=== PATIENT | female | born 1980 | race Caucasian/White ===

== ENCOUNTER 2017-01-27 09:47 | Emergency (ER) | payer BC, OTHER ==
[~2017-01-27] VITALS: Ht 170.2 cm; Wt 75.0 kg
[2017-01-27] MEDS ORDERED: SERT-155 (10:03)
[2017-01-27] MEDS ORDERED: SERT25TA88 (10:03)
[2017-01-27 10:58] LABS: BASO % 0.3 % (0.0-1.0); EOS # 0.2 K/mm3 (0.0-0.50); LARGE UNSTAINED CELL # 0.1 K/mm3 (0.0-0.4); LARGE UNSTAINED CELL % 1.5 % (0.0-4.0); LYMPH # 1.5 K/mm3 (1.5-4.5); LYMPH % 18.2 % (24.0-44.0); MEAN CORPUSCULAR HEMOGLOBIN 31.2 pg (27.0-33.0); MEAN CORPUSCULAR HGB CONC 34.7 g/dl (32.0-36.5); MEAN CORPUSCULAR VOLUME 90.1 fl (80.0-96.0); MONO # 0.6 K/mm3 (0.0-0.8); NEUTROPHILS # 5.2 K/mm3 (1.8-7.7); NEUTROPHILS % 68.9 % (36.0-66.0); PLATELET COUNT, AUTOMATED 263 k/mm3 (150-450); RED CELL DISTRIBUTION WIDTH 12.3 % (11.5-14.5); WHITE BLOOD COUNT 7.5 K/mm3 (4.0-10.0)
[2017-01-27 11:20] LABS: CONTROL LINE HCG INT CTR LINE PRESENT
[2017-01-27 11:23] LABS: INR 0.96
--- NOTE | 2017-01-27 12:25 | REP ---
Clinical: Abnormal uterine bleeding . Technique: Transabdominal pelvic ultrasound followed by transvaginal examination for better evaluation of the endometrium and adnexa with color Doppler evaluation of the ovaries. Findings: Bladder is unremarkable and measures approximately 8.0 x 6.2 x 3.4 cm . Heterogeneous anteverted possibly subseptate uterus measures 6.3 x 3.3 x 4.1 cm. The endometrial complex measures 3.8 mm thickness. Sub centimeter anterior intramural fibroid measures roughly 7 mm maximal diameter. Bilateral ovaries are normal in appearance and vascularity without evidence for torsion. Right ovary measures 1.6 x 1.3 x 2.0 cm ; R I = 0.63 . Left ovary measures 3.9 x 2.6 x 2.3 cm and includes multiple follicles; R I = 0.45 . No pelvic fluid or adnexal mass lesion . Impression: 1. Subcentimeter anterior intramural fibroid. Subseptate appearance to the uterus. 2. Normal bilateral ovaries. 3. No pelvic fluid or adnexal mass lesion. Signed by Ad Toledo MD 01/27/2017 12:17 P
[2017-01-27 12:54] VITALS: BP 129/73
== END 2017-01-27 12:59 | disposition home or self-care (01) ==
LOC: M ED 09:47
DX: N93.8 Other specified abnormal uterine and vaginal bleeding (principal); D25.1 Intramural leiomyoma of uterus; Z88.5 Allergy status to narcotic agent; Z79.899 Other long term (current) drug therapy

== ENCOUNTER 2019-12-04 10:04 | Emergency (ER) | payer BC, OTHER ==
[~2019-12-04] VITALS: Ht 170.2 cm; Wt 88.6 kg
[~2019-12-04 10:04] MED LIST: SERT25TA21; SERT50TA29
[2019-12-04] MEDS ORDERED: SERT-141 PO (10:11)
[2019-12-04] MEDS ORDERED: NS 1,000 ML IV ONE (10:30)
[2019-12-04 11:19] LABS: BASO % 0.2 % (0.0-1.0); EOS % 0.3 % (0.0-3.0); HEMATOCRIT 45.2 % (36.0-47.0); HEMOGLOBIN 14.6 g/dl (12.0-15.5); LYMPH # 1.1 10^3/uL (1.5-5.0); LYMPH % 11.2 % (24.0-44.0); MEAN CORPUSCULAR HEMOGLOBIN 29.9 pg (27.0-33.0); MEAN CORPUSCULAR HGB CONC 32.3 g/dl (32.0-36.5); MEAN CORPUSCULAR VOLUME 92.6 fl (80.0-96.0); MONO # 0.7 10^3/uL (0.0-0.8); MONO % 7.6 % (0.0-5.0); NEUTROPHILS # 7.6 10^3/uL (1.5-8.5); NEUTROPHILS % 80.5 % (36.0-66.0); PLATELET COUNT, AUTOMATED 262 10^3/uL (150-450); RED BLOOD COUNT 4.88 10^6/uL (4.00-5.40); WHITE BLOOD COUNT 9.5 10^3/uL (4.0-10.0)
[2019-12-04 11:47] LABS: ALBUMIN 4.2 GM/DL (3.2-5.2); ALT/SGPT 53 U/L (12-78); BILIRUBIN,DIRECT < 0.1 MG/DL (0.0-0.2); BILIRUBIN,TOTAL 0.7 MG/DL (0.2-1.0); TOTAL PROTEIN 7.5 GM/DL (6.4-8.2)
[2019-12-04] MEDS ORDERED: ISOVUE-370 76% 100ML VIAL As Ordered ONE (12:31)
[2019-12-04] MEDS ORDERED: ZOFR4TAB16 PO (13:20)
[2019-12-04 13:35] VITALS: BP 132/85
--- NOTE | 2019-12-04 14:41 | REP ---
CT ABDOMEN AND PELVIS WITH IV CONTRAST: TECHNIQUE: Axial contrast-enhanced images from the lung bases to the pubic symphysis using 100 mL Isovue-370 intravenous contrast material with multiplanar reformations. The visualized lung bases demonstrate no evidence of infiltrate. The liver, spleen, adrenals, and pancreas are unremarkable. There is no hydronephrosis bilaterally. 3 mm calcification is seen in the right renal collecting system inferiorly. There is no hydroureter. There is no abdominal aortic aneurysm with mild atherosclerotic calcification. There is no significant adenopathy. There is no free air or free fluid. There is no bowel wall thickening. Oval cystic structure of the right ovary has a maximum diameter of 3 cm. Left ovary is unremarkable. Urinary bladder is not well distended and not well evaluated. IMPRESSION: Cysteic structure right ovary measures 3 cm in maximum diameter. No free air or free fluid. No bowel obstruction. Intrarenal calculus right kidney 3 mm in diameter with no hydroureteronephrosis. Electronically Signed by Kike Cruz MD 12/06/2019 11:20 P
== END 2019-12-04 13:54 | disposition home or self-care (01) ==
LOC: M ED 10:04
DX: R10.9 Unspecified abdominal pain (principal); R19.7 Diarrhea, unspecified; R11.10 Vomiting, unspecified; N83.299 Other ovarian cyst, unspecified side; N20.0 Calculus of kidney; Z88.5 Allergy status to narcotic agent
CPT/HCPCS: 74177; 80047; 80076; 81001; 83605; 85025; 87040; 87486; 87581; 87633; 87798; 96360; 99284; Q9967

== ENCOUNTER → 2021-02-22 | Outpatient (CLI) | payer OTHER, BC ==
[~2021-02-22] MED LIST changes: +SERT-141 PO; +ZOFR4TAB16 PO
== END ==
LOC: M WUC 15:13
PROVIDERS: ATTEND Physician Assistant
DX: Z02.1 Encounter for pre-employment examination (principal)

== ENCOUNTER → 2022-04-09 | Outpatient (REF) ==
[2022-04-09 11:13] LABS: RSV AMPLIFICATION NEGATIVE (NEGATIVE)
== END ==
LOC: M LABSMTC 10:19
PROVIDERS: ATTEND Family Medicine
DX: Z20.828 Contact with and (suspected) exposure to other viral communicable diseases (principal)

== ENCOUNTER 2022-08-07 10:14 | Emergency (ER) | payer OTHER, BC ==
[~2022-08-07] VITALS: Ht 172.7 cm; Wt 95.6 kg
[~2022-08-07 10:14] MED LIST changes: +RALTEGRAVIR 400 MG TAB (ISENTRESS) PO SCH; +TRUVADA 200MG/300MG TABLET PO SCH
[2022-08-07 10:15] VITALS: BP 138/82
[2022-08-07 11:14] LABS: BASO % 0.3 % (0.0-1.0); EOS # 0.1 10^3/uL (0.0-0.5); EOS % 1.4 % (0.0-3.0); HEMATOCRIT 43.5 % (36.0-47.0); HEMOGLOBIN 14.5 g/dl (12.0-15.5); LYMPH % 20.4 % (24.0-44.0); MEAN CORPUSCULAR HGB CONC 33.3 g/dl (32.0-36.5); MEAN CORPUSCULAR VOLUME 89.9 fl (80.0-96.0); MONO # 0.5 10^3/uL (0.0-0.8); MONO % 5.5 % (2.0-8.0); NEUTROPHILS # 7.1 10^3/uL (1.5-8.5); NEUTROPHILS % 72.1 % (36.0-66.0); PLATELET COUNT, AUTOMATED 307 10^3/uL (150-450); RED BLOOD COUNT 4.84 10^6/uL (4.00-5.40); WHITE BLOOD COUNT 9.9 10^3/uL (4.0-10.0)
[2022-08-07 12:32] LABS: ALBUMIN 4.4 G/DL (3.2-5.2); ALKALINE PHOSPHATASE 70 U/L (46-116); ALT/SGPT 64 U/L (7.0-40); AST/SGOT 47 U/L (<34); BILIRUBIN,TOTAL 0.9 MG/DL (0.3-1.2); BLOOD UREA NITROGEN 17 MG/DL (9-23); CALCIUM LEVEL 9.5 MG/DL (8.5-10.1); CARBON DIOXIDE LEVEL 25 MMOL/L (20-31); CHLORIDE LEVEL 105 MMOL/L (98-107); CREATININE FOR GFR 0.75 MG/DL (0.55-1.30); GLOMERULAR FILTRATION RATE > 60.0 (>58); GLUCOSE, FASTING 90 MG/DL (60-100); POTASSIUM SERUM 4.3 MMOL/L (3.5-5.1); SODIUM LEVEL 138 MMOL/L (136-145); TOTAL PROTEIN 7.2 G/DL (5.7-8.2)
[2022-08-07 12:34] LABS: HCG, SERUM QUALITATIVE NEGATIVE (NEGATIVE); HEPATITIS B SURFACE ANTIBODY NEGATIVE (POSITIVE)
[2022-08-07] MEDS ORDERED: EXPOSURE KIT-ADULT 7 DAY SUPPLY PO ONE (12:40)
[2022-08-07] MEDS ORDERED: EMTR1TAB16 PO (12:42)
[2022-08-07] MEDS ORDERED: ONDA4TAB6 PO (12:43)
[2022-08-07] MEDS ORDERED: RALT40TA PO (12:43)
[2022-08-07] MEDS ORDERED: ONDANSETRON 4MG ORAL DISINTEGRATING TAB PO ONE (12:45)
[2022-08-07 12:46] LABS: HEPATITIS B SURFACE ANTIGEN NEGATIVE (NEGATIVE)
[2022-08-07 12:58] LABS: HIV 1&2 SCREEN CENTAUR NEGATIVE (NEGATIVE)
[2022-08-07 12:59] LABS: HIV SCREEN CENTAUR EXPOSED NEGATIVE (NEGATIVE)
[2022-08-07] MEDS ORDERED: RALTEGRAVIR 400 MG TAB (ISENTRESS) PO ONE (14:00)
[2022-08-07] MEDS ORDERED: TRUVADA 200MG/300MG TABLET PO ONE (14:00)
== END 2022-08-07 13:24 | disposition home or self-care (01) ==
LOC: M ED 10:14
DX: S61.230A Puncture wound without foreign body of right index finger without damage to nail, initial encounter (principal); W46.0XXA Contact with hypodermic needle, initial encounter; Z77.21 Contact with and (suspected) exposure to potentially hazardous body fluids; Z88.5 Allergy status to narcotic agent; Y99.0 Civilian activity done for income or pay; Z79.83 Long term (current) use of bisphosphonates; Z79.52 Long term (current) use of systemic steroids; Z79.899 Other long term (current) drug therapy

== ENCOUNTER → 2023-12-16 | Outpatient (CLI) | payer BC ==
[~2023-12-16] MED LIST changes: +EMTR1TAB16 PO; +ONDA-282 PO; +RALT40TA PO; -RALTEGRAVIR 400 MG TAB (ISENTRESS) PO SCH; -TRUVADA 200MG/300MG TABLET PO SCH
[2023-12-16 15:16] LABS: Trichomonas vaginalis (AMP) NOT DETECTED (NEGATIVE)
[2023-12-16 15:40] LABS: GC DNA AMPLIFICATION NEGATIVE (NEGATIVE)
[2023-12-16 15:50] LABS: BASO % 0.4 % (0.0-1.0); EOS # 0.1 10^3/uL (0.0-0.5); EOS % 1.1 % (0.0-3.0); HEMATOCRIT 43.3 % (36.0-47.0); HEMOGLOBIN 14.3 g/dl (12.0-15.5); LYMPH # 2.4 10^3/uL (1.5-5.0); LYMPH % 24.6 % (24.0-44.0); MEAN CORPUSCULAR HEMOGLOBIN 30.2 pg (27.0-33.0); MEAN CORPUSCULAR VOLUME 91.5 fl (80.0-96.0); MONO # 0.8 10^3/uL (0.0-0.8); MONO % 7.8 % (2.0-8.0); NEUTROPHILS # 6.4 10^3/uL (1.5-8.5); NEUTROPHILS % 65.9 % (36.0-66.0); PLATELET COUNT, AUTOMATED 331 10^3/uL (150-450); RED BLOOD COUNT 4.73 10^6/uL (4.00-5.40); WHITE BLOOD COUNT 9.7 10^3/uL (4.0-10.0)
[2023-12-16 15:54] LABS: FREE T4 1.21 NG/DL (0.89-1.76)
[2023-12-16 16:04] LABS: HEPATITIS B SURFACE ANTIGEN NEGATIVE (NEGATIVE)
[2023-12-16 16:17] LABS: HIV 1&2 SCREEN NEGATIVE (NEGATIVE)
[2023-12-16 16:25] LABS: HEPATITIS B CORE ANTIBODY IGM NEGATIVE (NEGATIVE); HEPATITIS C VIRUS ABY INDEX < 0.02 INDEX (<0.8)
== END ==
LOC: M PLALAB 09:18
PROVIDERS: ATTEND Nurse Practitioner Family
DX: Z12.4 Encounter for screening for malignant neoplasm of cervix (principal); Z77.9 Other contact with and (suspected) exposures hazardous to health; N92.1 Excessive and frequent menstruation with irregular cycle
CPT/HCPCS: 36415; 84439; 84443; 85025; 86705; 86780; 86803; 87070; 87340; 87389; 87624; 87661; 87810; 87850; G0123

== ENCOUNTER 2023-12-20 00:11 | Emergency (ER) | payer BC ==
[~2023-12-20] VITALS: Ht 170.2 cm; Wt 90.9 kg
[2023-12-20 04:49] VITALS: BP 133/63; TEMP 98.2; O2SAT 100
== END 2023-12-20 05:06 | disposition left against medical advice (07) ==
LOC: M ED 00:11
DX: Z53.21 Procedure and treatment not carried out due to patient leaving prior to being seen by health care provider (principal)

== ENCOUNTER 2024-03-24 08:53 | Outpatient (RCR) | payer BC | END 2024-03-26 | LOC: M PT 08:53 | PROVIDERS: ATTEND Orthopaedic Surgery | DX: Z47.89 Encounter for other orthopedic aftercare (principal) ==

== ENCOUNTER 2024-04-22 08:59 | Outpatient (RCR) | payer BC, OTHER | END 2024-04-25 | LOC: M PT 08:59 | PROVIDERS: ATTEND Orthopaedic Surgery | DX: S83.204D Other tear of unspecified meniscus, current injury, left knee, subsequent encounter (principal); Z98.890 Other specified postprocedural states ==

== ENCOUNTER → 2024-05-26 | Outpatient (RCR) | payer BC, OTHER | LOC: M PT 05-06 10:30 | PROVIDERS: ATTEND Orthopaedic Surgery | DX: Z47.89 Encounter for other orthopedic aftercare (principal) ==

== ENCOUNTER 2024-06-25 09:53 | Outpatient (RCR) | payer BC, OTHER | END 2024-06-26 | LOC: M PT 09:53 | PROVIDERS: ATTEND Orthopaedic Surgery | DX: Z47.89 Encounter for other orthopedic aftercare (principal) ==

== ENCOUNTER 2024-07-14 09:40 | Outpatient (RCR) | payer BC, OTHER | END 2024-07-24 | LOC: M PT 09:40 | PROVIDERS: ATTEND Orthopaedic Surgery | DX: Z47.89 Encounter for other orthopedic aftercare (principal); Z98.890 Other specified postprocedural states ==

== ENCOUNTER → 2025-04-15 | Outpatient (REF) | payer BC, OTHER ==
[2025-04-17 14:23] LABS: HPV APTIMA Not Detected (Not Detected)
== END ==
LOC: M SFHCWAGY 14:56
PROVIDERS: ATTEND Nurse Practitioner Family
DX: Z12.4 Encounter for screening for malignant neoplasm of cervix (principal); R87.615 Unsatisfactory cytologic smear of cervix
CPT/HCPCS: 87624; G0123

== ENCOUNTER → 2025-04-26 | Outpatient (REF) | payer BC, OTHER | LOC: M SFHCWAGY 12:57 | PROVIDERS: ATTEND Nurse Practitioner Family | DX: R23.9 Unspecified skin changes (principal) ==